=== PATIENT | female | born 1975 ===

== ENCOUNTER 2018-09-06 11:14 | Emergency (ER) | payer OTHER ==
--- NOTE | 2018-09-06 11:37 | Event Note ---
ED Screening Note Date of service: 09/06/18 Time: 11:25 ED Screening Note: 42 y/o female comes in for chest tightness sweat and nausea this morning. This initial assessment/diagnostic orders/clinical plan/treatment(s) is/are subject to change based on patients health status, clinical progression and re- assessment by fellow clinical providers in the ED. Further treatment and workup at subsequent clinical providers discretion. Patient/guardian urged not to elope from the ED as their condition may be serious if not clinically assessed and managed. Initial orders include:
[2018-09-06 11:42] LABS: Basophils # (Auto) 0.1 K/mm3 (0.0-0.1); Basophils % (Auto) 0.8 % (0.0-1.8); Eosinophils # (Auto) 0.3 K/mm3 (0.0-0.4); Eosinophils % (Auto) 3.5 % (0.0-4.3); Hematocrit 43.5 % (30.3-42.9); Hemoglobin 14.7 gm/dl (10.1-14.3); Lymphocytes % (Auto) 34.3 % (13.4-35.0); Mean Corpuscular HGB Conc 34 % (30-34); Mean Corpuscular Volume 91 fl (79-97); Monocytes # (Auto) 0.7 K/mm3 (0.0-0.8); Monocytes % (Auto) 7.9 % (0.0-7.3); Platelet Count 246 K/mm3 (140-440); Red Cell Distribution Width 13.2 % (13.2-15.2)
--- NOTE | 2018-09-06 12:01 | Emergency Department Report ---
<CHALINO FLOWERS - Last Filed: 09/06/18 16:35> ED Dizziness HPI - General Chief Complaint: Dizziness Stated Complaint: DIZZY Time Seen by Provider: 09/06/18 11:55 Source: patient Mode of arrival: Ambulatory Limitations: No Limitations - History of Present Illness Initial Comments: Patient is 42 years old female with no significant past medical history. Patient presented to the ER complaining of dizziness for the last 2 weeks. Patient stated that a little bit improved today. Patient denied any chest pain but she had shortness of breath when symptoms started 2 weeks ago. Patient denied any weakness, numbness or tingling sensation. No ataxia. No urinary or bowel incontinence. Patient stated that she is slightly nauseated but no vomiting. MD Complaint: dizziness -: week(s) (2) Timing: gradual onset Description: sense of movement, "room spinning" History of Same: No History of Trauma: No Severity: moderate Improves With: remaining still Worsens With: position Associated Symptoms: denies other symptoms - Related Data Previous Rx's Medication Instructions Recorded Last Taken Type Meclizine [Antivert] 25 mg PO TID PRN #20 tablet 09/06/18 Unknown Rx Ondansetron [Zofran Odt] 4 mg PO Q8HR PRN #14 tab.rapdis 09/06/18 Unknown Rx Allergies Allergy/AdvReac Type Severity Reaction Status Date / Time No Known Allergies Allergy Unverified 09/06/18 11:15 ED Review of Systems Comment: All other systems reviewed and negative Constitutional: denies: chills, fever Respiratory: denies: cough, shortness of breath Cardiovascular: denies: chest pain Gastrointestinal: denies: abdominal pain, nausea Neurological: denies: headache ED Past Medical Hx - Past Medical History Previous Medical History?: No Hx Diabetes: No Hx Asthma: No - Surgical History Past Surgical History?: Yes Additional Surgical History: - Social History Smoking Status: Never Smoker Substance Use Type: None - Medications Home Medications: Home Medications Medication Instructions Recorded Confirmed Last Taken Type Meclizine [Antivert] 25 mg PO TID PRN #20 tablet 09/06/18 Unknown Rx Ondansetron [Zofran Odt] 4 mg PO Q8HR PRN #14 tab.rapdis 09/06/18 Unknown Rx ED Physical Exam - General Limitations: No Limitations General appearance: alert, in no apparent distress - Head Head exam: Present: atraumatic, normocephalic, normal inspection - Eye Eye exam: Present: normal appearance, PERRL - ENT ENT exam: Present: normal exam, normal orophraynx, mucous membranes moist - Neck Neck exam: Present: normal inspection, full ROM. Absent: tenderness, meningismus, lymphadenopathy, thyromegaly - Respiratory Respiratory exam: Present: normal lung sounds bilaterally - Cardiovascular Cardiovascular Exam: Present: regular rate, normal rhythm, normal heart sounds - GI/Abdominal GI/Abdominal exam: Present: soft, normal bowel sounds. Absent: distended, tenderness, guarding, rebound, rigid, organomegaly, mass, bruit, pulsatile mass, hernia - Extremities Exam Extremities exam: Present: normal inspection, full ROM, normal capillary refill - Back Exam Back exam: Present: normal inspection, full ROM. Absent: CVA tenderness (R), CVA tenderness (L) - Neurological Exam Neurological exam: Present: alert, oriented X3, CN II-XII intact, normal gait, reflexes normal - Psychiatric Psychiatric exam: Present: normal mood - Skin Skin exam: Present: warm, intact, normal color ED Medical Decision Making - Lab Data Result diagrams: 09/06/18 11:30 09/06/18 11:30 - Radiology Data Radiology results: report reviewed CT brain is unremarkable. - Medical Decision Making Patient is 42 years old female with no significant past medical history. Patient presented to the ER complaining of dizziness for the last 2 weeks. Patient stated that a little bit improved today. Patient denied any chest pain but she had shortness of breath when symptoms started 2 weeks ago. Patient denied any weakness, numbness or tingling sensation. No ataxia. No urinary or bowel incontinence. Patient stated that she is slightly nauseated but no vomiting. ED Disposition Clinical Impression: Dizziness Benign positional vertigo Qualifiers: Laterality: unspecified laterality Qualified Code(s): H81.10 - Benign paroxysmal vertigo, unspecified ear Disposition: -01 TO HOME OR SELFCARE Is pt being admited?: No Condition: Stable Instructions: Benign Paroxysmal Positional Vertigo (ED), Dizziness (ED) Prescriptions: Meclizine [Antivert] 25 mg PO TID PRN #20 tablet PRN Reason: Vertigo Ondansetron [Zofran Odt] 4 mg PO Q8HR PRN #14 tab.rapdis PRN Reason: Nausea And Vomiting Referrals: KORY ZAMBRANOCOX MONETT MD MICHELLE [Primary Care Provider] - 3-5 Days <MIKE MTZ - Last Filed: 09/06/18 17:34> ED Review of Systems ROS: Stated complaint: DIZZY Other details as noted in HPI ED Course Vital Signs 09/06/18 11:23 Temperature 98.3 F Pulse Rate 75 Respiratory 16 Rate Blood Pressure 132/85 O2 Sat by Pulse 100 Oximetry ED Medical Decision Making - Lab Data Result diagrams: 09/06/18 11:30 09/06/18 11:30 - Medical Decision Making Patient was originally seen by Dr. Flowers and was signed out to me for a pending CTA. Was instructed that his CTA was within normal limits patient can be discharged. CTA has been obtained and dictated by radiologist within normal limits. Patient is notified of the results with no questions no noted by the patient. Patient was instructed to Follow-up with a primary care doctor in 3-5 days or if symptoms worsen and continue return to emergency room as soon as possible. At time of discharge, the patient does not seem toxic or ill in appearance. No acute signs of distress noted. Patient agrees to discharge treatment plan of care. No further questions noted by the patient. Critical care attestation.: If time is entered above; I have spent that time in minutes in the direct care of this critically ill patient, excluding procedure time.
[2018-09-06 12:19] LABS: Alanine Aminotransferase 22 units/L (7-56); Albumin 4.6 g/dL (3.9-5); BUN/Creatinine Ratio 14; Blood Urea Nitrogen 10 mg/dL (7-17); Calcium 9.1 mg/dL (8.4-10.2); Hemolysis Index 20
[2018-09-06 13:03] LABS: Bacteria,Urine 1+ /HPF (Negative); Bilirubin,Urine NEG (Negative); Blood,Urine NEG (Negative); Color,Urine Yellow (Yellow); Protein,Urine <15 mg/dL mg/dL (Negative); Urobilinogen,Urine < 2.0 mg/dL (<2.0)
--- NOTE | 2018-09-06 14:49 | Cat Scan Report ---
CT head without contrast INDICATION : Dizziness.. TECHNIQUE: Axial imaging performed from the skull apex through the skull base without the use of con trast. All CT scans at this location are performed using CT dose reduction based on patient size. COMPARISON: None FINDINGS: Parenchyma: No acute intracranial hemorrhage or parenchymal abnormality. Ventricles: Ventricles are normal in size and appear symmetric. Soft tissues: Soft tissues including the orbits appear normal. Bones: No acute osseous abnormality. Sinuses: Sinuses and mastoid air cells are clear. IMPRESSION: Normal head CT. Signer Name: Ned Finch MD Signed: 09/06/2018 2:44 PM Workstation Name: [id number]
--- NOTE | 2018-09-06 17:15 | Cat Scan Report ---
CTA CHEST WITH IV CONTRAST INDICATION / CLINICAL INFORMATION: CHEST PAIN TODAY. TECHNIQUE: Axial CT images were obtained through the chest after injection of 100 mL Omnipaque 350 IV contrast. 3 plane MIP and/or 3D reconstructions were produced. All CT scans at this location are performed usin g CT dose reduction for SARA by means of automated exposure control. COMPARISON: None available. FINDINGS: PULMONARY ARTERIES: No pulmonary emboli. THORACIC AORTA: No significant abnormality. HEART: No significant abnormality. CORONARY ARTERIES: No significant calcification. PLEURA: No pleural effusion. No pneumothorax. LYMPH NODES: No significant adenopathy. LUNGS: No acute air space or interstitial disease. ADDITIONAL FINDINGS: None. UPPER ABDOMEN: No significant abnormality in the visualized upper abdomen. SKELETAL STRUCTURES: No significant osseous abnormality. IMPRESSION: 1. No CT evidence for pulmonary embolism. 2. No acute findings. Signer Name: Paramjit Segura MD Signed: 09/06/2018 2:53 PM Workstation Name: [id number]
[2018-09-06 17:54] VITALS: BP 128/81
== END 2018-09-06 18:00 | disposition home or self-care (01) ==
LOC: ED 11:14
DX: H81.10 Benign paroxysmal vertigo, unspecified ear (principal); R42 Dizziness and giddiness
CPT/HCPCS: 36415; 70450; 71275; 80053; 81001; 84484; 84703; 85025; 85379; 93005; 93010; 99284; Q9967